=== PATIENT | male | born 1995 | race Caucasian/White ===

== ENCOUNTER → 2016-07-10 | Outpatient (REF) | payer BC, OTHER | LOC: M LAB REF 09:37 | PROVIDERS: ATTEND Physician Assistant | DX: Z20.2 Contact with and (suspected) exposure to infections with a predominantly sexual mode of transmission (principal) ==

== ENCOUNTER → 2018-09-13 | Outpatient (CLI) | payer BC, OTHER ==
[2018-09-13 13:44] LABS: BASO % 0.5 % (0.0-1.0); EOS # 0.1 10^3/uL (0.0-0.50); EOS % 1.2 % (0.0-3.0); HEMATOCRIT 43.2 % (42.0-52.0); LYMPH # 1.6 10^3/uL (1.5-6.5); LYMPH % 29.2 % (24.0-44.0); MEAN CORPUSCULAR HEMOGLOBIN 30.5 pg (27.0-33.0); MEAN CORPUSCULAR HGB CONC 34.7 g/dl (32.0-36.5); MONO # 0.6 10^3/uL (0.0-0.8); MONO % 10.7 % (0.0-5.0); NEUTROPHILS # 3.3 10^3/uL (1.8-7.7); NEUTROPHILS % 58.2 % (36.0-66.0); PLATELET COUNT, AUTOMATED 294 10^3/uL (150-450); RED BLOOD COUNT 4.91 10^6/uL (4.30-6.10); WHITE BLOOD COUNT 5.6 10^3/uL (4.0-10.0)
[2018-09-13 14:00] LABS: BLOOD UREA NITROGEN 10 MG/DL (7-18); CALCIUM LEVEL 9.1 MG/DL (8.5-10.1); CARBON DIOXIDE LEVEL 29 MEQ/L (21-32); CHLORIDE LEVEL 108 MEQ/L (98-107); CREATININE FOR GFR 1.07 MG/DL (0.70-1.30); GLOMERULAR FILTRATION RATE > 60.0 (>60); GLUCOSE, FASTING 67 MG/DL (70-100); POTASSIUM SERUM 4.1 MEQ/L (3.5-5.1); SODIUM LEVEL 141 MEQ/L (136-145)
== END ==
LOC: M LAB 12:44
PROVIDERS: ATTEND Orthopaedic Surgery
DX: Z01.818 Encounter for other preprocedural examination (principal); M24.152 Other articular cartilage disorders, left hip; M25.552 Pain in left hip

== ENCOUNTER → 2022-12-21 | Outpatient (CLI) | payer BC | LOC: M PLAIMG 15:29 | PROVIDERS: ATTEND Internal Medicine Hematology & Oncology | DX: E83.119 Hemochromatosis, unspecified (principal); K76.0 Fatty (change of) liver, not elsewhere classified ==

== ENCOUNTER → 2023-01-26 | Outpatient (CLI) | payer BC | LOC: M WHC 07:32 | PROVIDERS: ATTEND Urology | DX: N50.812 Left testicular pain (principal) ==

== ENCOUNTER → 2023-09-06 | Outpatient (CLI) | payer BC ==
[~2023-09-06] MED LIST: LISI10TA22
[2023-09-06 16:07] LABS: ALBUMIN 4.2 G/DL (3.2-5.2); ALKALINE PHOSPHATASE 87 U/L (46-116); ALT/SGPT 277 U/L (7.0-40); AST/SGOT 114 U/L (<34); BILIRUBIN,TOTAL 1.4 MG/DL (0.3-1.2); BLOOD UREA NITROGEN 11 MG/DL (9-23); CALCIUM LEVEL 9.8 MG/DL (8.5-10.1); CARBON DIOXIDE LEVEL 28 MMOL/L (20-31); CHLORIDE LEVEL 106 MMOL/L (98-107); CREATININE FOR GFR 1.04 MG/DL (0.70-1.30); FERRITIN 186.9 NG/ML (10.5-307.3); GLOMERULAR FILTRATION RATE > 60.0 (>60); GLUCOSE, FASTING 95 MG/DL (60-100); POTASSIUM SERUM 4.4 MMOL/L (3.5-5.1); SODIUM LEVEL 139 MMOL/L (136-145); TOTAL PROTEIN 7.3 G/DL (5.7-8.2)
== END ==
LOC: M LAB 15:01
PROVIDERS: ATTEND Nurse Practitioner
DX: E83.110 Hereditary hemochromatosis (principal)

== ENCOUNTER 2024-09-25 18:51 | Emergency (ER) | payer BC ==
[~2024-09-25] VITALS: Ht 172.7 cm; Wt 81.1 kg
[2024-09-25 19:59] LABS: BASO # 0.1 10^3/uL (0.0-0.2); BASO % 1.5 % (0.0-1.0); EOS # 0.1 10^3/uL (0.0-0.5); EOS % 1.3 % (0.0-3.0); LYMPH # 1.3 10^3/uL (1.5-5.0); LYMPH % 27.6 % (24.0-44.0); MONO # 0.7 10^3/uL (0.0-0.8); MONO % 14.3 % (2.0-8.0); NEUTROPHILS # 2.5 10^3/uL (1.5-8.5); NEUTROPHILS % 54.9 % (36.0-66.0); PLATELET COUNT, AUTOMATED 295 10^3/uL (150-450)
[2024-09-25 20:19] LABS: AMPHETAMINES LEVEL URINE NEGATIVE (NEGATIVE); BARBITURATES URINE NEGATIVE (NEGATIVE)
[2024-09-25 20:20] LABS: BENZODIAZEPINES URINE NEGATIVE (NEGATIVE); CANNABINOIDS URINE NEGATIVE (NEGATIVE); COCAINE METABOLITE URINE NEGATIVE (NEGATIVE); METHADONE URINE NEGATIVE (NEGATIVE); OPIATES URINE NEGATIVE (NEGATIVE); PHENCYCLIDINE URINE NEGATIVE (NEGATIVE)
[2024-09-25 20:21] LABS: SALICYLATE LEVEL < 3.0 MG/DL (<30)
[2024-09-25 20:22] LABS: ALT/SGPT 226 U/L (7.0-40); AST/SGOT 194 U/L (<34); CALCIUM LEVEL 9.1 MG/DL (8.5-10.1); CARBON DIOXIDE LEVEL 25 MMOL/L (20-31); CHLORIDE LEVEL 104 MMOL/L (98-107); CPK CREATINE PHOSPHOKINASE 218 U/L (46-171); CREATININE FOR GFR 0.81 MG/DL (0.70-1.30); GLOMERULAR FILTRATION RATE > 90.0 (>60); MAGNESIUM LEVEL 1.8 MG/DL (1.8-2.4); PHOSPHORUS LEVEL 3.0 MG/DL (2.5-4.9); POTASSIUM SERUM 4.1 MMOL/L (3.5-5.1); SODIUM LEVEL 145 MMOL/L (136-145)
[2024-09-25] MEDS: MULTIVITAMIN -ADULT INJECTION 10 ML, THIAMINE INJection 100 MG, FOLIC ACID 1 MG in NS (... IV ONE (20:23)
[2024-09-25 21:05] LABS: ETHYL ALCOHOL (ETHANOL) 0.376 % (0.000-0.010)
[2024-09-25] MEDS ORDERED: OXAZ30CA2 PO (22:47)
[2024-09-25 23:00] VITALS: BP 138/96; TEMP 99; O2SAT 94
[2024-09-25] MEDS: OXAZEPAM 15MG CAP PO ONE (23:02)
== END 2024-09-25 23:00 | disposition home or self-care (01) ==
LOC: M ED 18:51
DX: F10.10 Alcohol abuse, uncomplicated (principal); I10 Essential (primary) hypertension; Z79.899 Other long term (current) drug therapy
CPT/HCPCS: 80048; 80076; 80143; 80307; 82077; 82550; 83735; 84100; 84443; 85025; 93005; 93041; 94760; 96365; 96366; 99285; J1808; J3411

== ENCOUNTER → 2024-10-21 | Outpatient (CLI) | payer BC ==
[~2024-10-21] MED LIST changes: +IBUP200T46 PO; +OXAZ30CA2 PO
[2024-10-21 16:20] LABS: BASO # 0.1 10^3/uL (0.0-0.2); BASO % 1.3 % (0.0-1.0); EOS # 0.2 10^3/uL (0.0-0.5); EOS % 2.5 % (0.0-3.0); LYMPH # 1.6 10^3/uL (1.5-5.0); LYMPH % 20.3 % (24.0-44.0); MONO # 1.1 10^3/uL (0.0-0.8); MONO % 15.0 % (2.0-8.0); NEUTROPHILS # 4.6 10^3/uL (1.5-8.5); NEUTROPHILS % 60.5 % (36.0-66.0); PLATELET COUNT, AUTOMATED 386 10^3/uL (150-450)
[2024-10-21 16:51] LABS: ALT/SGPT 126 U/L (7.0-40); AST/SGOT 82 U/L (<34); CALCIUM LEVEL 10.2 MG/DL (8.5-10.1); CARBON DIOXIDE LEVEL 28 MMOL/L (20-31); CHLORIDE LEVEL 106 MMOL/L (98-107); CREATININE FOR GFR 0.96 MG/DL (0.70-1.30); GLOMERULAR FILTRATION RATE > 90.0 (>60); POTASSIUM SERUM 4.1 MMOL/L (3.5-5.1); SODIUM LEVEL 144 MMOL/L (136-145)
== END ==
LOC: M LAB 15:47
PROVIDERS: ATTEND Specialist
DX: E83.119 Hemochromatosis, unspecified (principal)